=== PATIENT | female | born 1940 | race Caucasian/White ===

== ENCOUNTER 2018-06-20 07:23 | Day surgery (SDC) | payer OTHER ==
[~2018-06-20 07:23] MED LIST: BALANCED SALT IRRIG SOLN COMB1 500 ML, EPINEPHRINE-PF 1:1000 0.5 MG IO ONE
[2018-06-20] MEDS ORDERED: TROPICAMIDE 1% OPHT DROP 3 ML BOTTLE ONE (07:36)
[2018-06-20] MEDS ORDERED: PHENYLEPHRINE 2.5% OPHT DROP 2 ML BOTTLE ONE (07:36)
[2018-06-20] MEDS ORDERED: KETOROLAC 0.5% OPHT DROP 3 ML BOTTLE ONE (07:36)
[2018-06-20] MEDS ORDERED: CYCLOPENTOLATE 1% OPHT DROP 2 ML BOTTLE ONE (07:36)
[2018-06-20] MEDS ORDERED: MOXIFLOXACIN HCL 3 ML OPHT DROPS ONE ×2 (07:37→07:38)
[2018-06-20] MEDS ORDERED: LIDOCAINE-MPF 2% 5 ML VIAL ONE (07:38)
[2018-06-20] MEDS ORDERED: BALANCED SALT IRRIG SOLN COMB2 15 ML IRRIG.SOLN ONE (07:39)
[2018-06-20] MEDS ORDERED: TETRACAINE HCL 0.5% OPHT DROP 2 ML BOTTLE ONE (07:39)
[2018-06-20] MEDS ORDERED: TIMOLOL MALEATE 0.5% OPHT DROP 5 ML BOTTLE ONE (07:39)
[2018-06-20] MEDS ORDERED: NEO/POLYMYX B/DEXAME OPHT OINT 3.5 GM TUBE ONE (07:39)
[2018-06-20] MEDS ORDERED: ACETYLCHOLINE CHLORIDE 1% OPHT 1 EA KIT ONE (07:40)
[2018-06-20] MEDS ORDERED: BUPIVACAINE PF 0.5% 30 ML VIAL ONE (07:40)
[2018-06-20] MEDS ORDERED: HYALURONIDASE,OVINE 200 UNITS/ML VIAL ONE (07:40)
[2018-06-20] MEDS ORDERED: HYALURONATE SODIUM 8.5 MG/0.85 ML DISP.SYRIN ONE (07:40)
[2018-06-20] MEDS ORDERED: HYALURONATE SODIUM 12.8 MG/0.8 ML DISP.SYRIN ONE (07:41)
[2018-06-20] MEDS ORDERED: FENTANYL CITRATE 100 MCG/2 ML AMPUL ONE (08:07)
[2018-06-20] MEDS ORDERED: BALANCED SALT IRRIG SOLN COMB1 0 ML ONE (08:09)
[2018-06-20] MEDS ORDERED: ONDANSETRON 4 MG/2 ML VIAL IV ONE (08:15)
== END 2018-06-20 10:50 | disposition home or self-care (01) ==
LOC: DS 07:23
PROVIDERS: ATTEND Ophthalmology
DX: H25.12 Age-related nuclear cataract, left eye (principal); I10 Essential (primary) hypertension; K21.9 Gastro-esophageal reflux disease without esophagitis; I25.10 Atherosclerotic heart disease of native coronary artery without angina pectoris; E11.9 Type 2 diabetes mellitus without complications; E78.5 Hyperlipidemia, unspecified; F17.210 Nicotine dependence, cigarettes, uncomplicated; M19.042 Primary osteoarthritis, left hand; M19.041 Primary osteoarthritis, right hand; F15.90 Other stimulant use, unspecified, uncomplicated; Z90.49 Acquired absence of other specified parts of digestive tract; Z79.899 Other long term (current) drug therapy; Z98.890 Other specified postprocedural states
CPT/HCPCS: A4663; J0171; J2405; J3010; J3471; J3490; J7030; J7321; V2632